=== PATIENT | male | born 1945 | race Caucasian/White ===

== ENCOUNTER → 2024-01-13 07:58 | Outpatient (REF) | payer OTHER, SELFPAY | LOC: DHCBS MAIN 07:58 | PROVIDERS: ATTENDING PHYSICIAN Internal Medicine Cardiovascular Disease; FAMILY PHYSICIAN Family Medicine | DX: R06.02 Shortness of breath (principal) | CPT/HCPCS: 93306 ==

== ENCOUNTER → 2024-01-16 07:52 | Outpatient (REF) | payer OTHER, SELFPAY | LOC: DHCBC/DCA 07:52 | PROVIDERS: ATTENDING PHYSICIAN Internal Medicine Cardiovascular Disease; FAMILY PHYSICIAN Family Medicine | DX: R06.02 Shortness of breath (principal) | CPT/HCPCS: 78452; 93017; A9500; J2785 ==